=== PATIENT | female | born 1955 | race Caucasian/White ===

== ENCOUNTER 2017-06-12 10:03 | Emergency (ER) | payer OTHER ==
[2017-06-12 10:12] VITALS: BP 142/66
--- NOTE | 2017-06-12 10:47 | RADIOLOGY REPORT (SQ) ---
EXAM DESCRIPTION: FOREARM LEFT COMPLETED DATE/TIME: 06/12/2017 10:32 am REASON FOR STUDY: fall COMPARISON: None. NUMBER OF VIEWS: Two views. TECHNIQUE: Two radiographic images acquired of the left forearm, including elbow and wrist in at [address] one projection. LIMITATIONS: None. FINDINGS: MINERALIZATION: Normal. BONES: There is a comminuted fracture of the distal radius with mild volar angulation. SOFT TISSUES: No obvious swelling or foreign body. OTHER: No other significant finding. IMPRESSION: Distal radial fracture. TECHNICAL DOCUMENTATION: JOB ID: [id number] [employer]- All Rights Reserved
[2017-06-12] MEDS ORDERED: TRAMADOL HCL 50 MG TABLET PO ONE (10:51)
--- NOTE | 2017-06-12 10:59 | ER Document Report ---
HPI - HPI Patient complains to provider of: fall Pain Level: 4 Context: Patient is a 62-year-old female presents emergency department complaining of left wrist pain. Patient states that she fell earlier today because she slipped landing on her left side mainly on her left wrist. She admits to pain just proximal to the base of her thumb. She states it hurts whenever she moves her fingers. Otherwise she states that she has a history of back pain. - CONSTITUTIONAL Constitutional: DENIES: Fever, Chills - EENT EENT: DENIES: Sore Throat, Ear Pain, Eye problems - NEURO Neurology: DENIES: Headache - CARDIOVASCULAR Cardiovascular: DENIES: Chest pain - RESPIRATORY Respiratory: DENIES: Trouble Breathing, Coughing - GASTROINTESTINAL Gastrointestinal: DENIES: Abdominal Pain, Black / Bloody Stools - URINARY Urinary: DENIES: Dysuria, Urgency, Frequency Past Medical History - Social History Smoking Status: Never Smoker Chew tobacco use (# tins/day): No Frequency of alcohol use: Occasional Drug Abuse: None Family History: Reviewed & Not Pertinent Patient has suicidal ideation: No Patient has homicidal ideation: No Renal/ Medical History: Denies: Hx Peritoneal Dialysis Past Surgical History: Reports: Hx Breast Surgery, Hx Kidney (Renal Surgery), Hx Tubal Ligation Vertical Provider Document - CONSTITUTIONAL Agree With Documented VS: Yes Notes: PHYSICAL EXAM GENERAL: Alert, interacts well. HEAD: Normocephalic, atraumatic. EXTREMITIES: Tenderness over the distal radius without evidence of deformity but evidence of swelling no ecchymosis. Patient's elbow nontender and full range of motion fingers nontender and full range of motion no pain with compression of the metacarpals. Patient lvn lpn strength guarded of the left hand. Radial pulse 2 out of 4 bilaterally. Cap refill less than 2 seconds. Sensory intact in all digits of the left hand. NEUROLOGICAL: Alert and oriented x4. Normal speech. PSYCH: Normal affect, normal mood. SKIN: Warm, dry, normal turgor. No rashes or lesions noted. - INFECTION CONTROL TRAVEL OUTSIDE OF THE [place] IN LAST 30 DAYS: No - RESPIRATORY O2 Sat by Pulse Oximetry: 98 Course - Re-evaluation Re-evalutation: 06/12/17 11:00 Patient is a 62-year-old female who presents after a fall. X-ray shows evidence of a distal radius fracture that is minimally displaced. Patient placed in a dorsal volar splint and educated on follow-up with orthopedics. Otherwise extremities neurovascularly intact. Patient given strict return precautions otherwise stable for discharge home. - Vital Signs Vital signs: Temp Pulse Resp BP Pulse Ox 97.9 F 61 18 142/66 H 98 06/12/17 10:10 06/12/17 10:10 06/12/17 10:10 06/12/17 10:10 06/12/17 10:10 - Diagnostic Test Radiology reviewed: Image reviewed, Reports reviewed Procedures - Immobilization Left Wrist Pre-Proc Neuro Vasc Exam: Normal Immobilizer type: Volar splint Performed by: PCT Post-Proc Neuro Vasc Exam: Unchanged from pre-exam Alignment checked and good: Yes Discharge - Discharge Clinical Impression: Distal radius fracture Qualifiers: Encounter type: initial encounter Fracture type: closed Fracture morphology: unspecified fracture morphology Laterality: left Qualified Code(s): S52.502A - Unspecified fracture of the lower end of left radius, initial encounter for closed fracture Condition: Good Disposition: HOME, SELF-CARE Instructions: Fractured Radius ([facility]), Splint Precautions ([facility]) Prescriptions: Oxycodone HCl/Acetaminophen [Percocet 5-325 mg Tablet] 1 - 2 tab PO Q4H PRN #15 tablet PRN Reason: Referrals: JOSUE HILLS DO [Primary Care Provider] - Follow up as needed MARCELA TRACY DO [ACTIVE STAFF] - 06/15/17
== END 2017-06-12 11:02 | disposition home or self-care (01) ==
LOC: ER 10:03
PROC: 2W3DX1Z Immobilization of Left Lower Arm using Splint (ICD-10-PCS; principal; 2017-06-12)
DX: S52.502A Unspecified fracture of the lower end of left radius, initial encounter for closed fracture (principal); M25.532 Pain in left wrist; W19.XXXA Unspecified fall, initial encounter
CPT/HCPCS: 99283

== ENCOUNTER 2017-06-17 15:11 | Emergency (ER) | payer OTHER ==
[2017-06-17] MEDS ORDERED: OXYCODONE-ACETAMINOPHEN 5-325 MG TABLET PO ONE (18:13)
--- NOTE | 2017-06-17 18:19 | ER Document Report ---
HPI - HPI Patient complains to provider of: Left forearm tenderness Onset: Other - 5 days Onset/Duration: Worse Quality of pain: Achy Pain Level: 3 Context: Patient states she had a splint placed after fracturing her wrist 5 days ago. Patient complains of pain with her splint and states that it was too tight. Patient states the triage nurse did loosen the splint in her arm feels better although she still has some discomfort. Associated Symptoms: Other - Left forearm pain Exacerbated by: Movement Relieved by: Denies Similar symptoms previously: No Recently seen / treated by doctor: No - ROS ROS below otherwise negative: Yes Systems Reviewed and Negative: Yes All other systems reviewed and negative - CONSTITUTIONAL Constitutional: DENIES: Fever, Chills - EENT EENT: DENIES: Sore Throat, Ear Pain, Eye problems - CARDIOVASCULAR Cardiovascular: DENIES: Chest pain - RESPIRATORY Respiratory: DENIES: Trouble Breathing, Coughing - GASTROINTESTINAL Gastrointestinal: DENIES: Abdominal Pain, Black / Bloody Stools - MUSCULOSKELETAL Musculoskeletal: REPORTS: Extremity pain - left arm in splint Past Medical History - General Information source: Patient - Social History Smoking Status: Former Smoker Chew tobacco use (# tins/day): No Frequency of alcohol use: None Drug Abuse: None Occupation: None Lives with: Family Family History: Reviewed & Not Pertinent Patient has suicidal ideation: No Patient has homicidal ideation: No Renal/ Medical History: Denies: Hx Peritoneal Dialysis Musculoskeltal Medical History: Reports Other - Chronic back Past Surgical History: Reports: Hx Breast Surgery, Hx Kidney (Renal Surgery), Hx Tubal Ligation Vertical Provider Document - CONSTITUTIONAL Agree With Documented VS: Yes Exam Limitations: No Limitations General Appearance: WD/WN, No Apparent Distress - INFECTION CONTROL TRAVEL OUTSIDE OF THE [place] IN LAST 30 DAYS: No - HEENT HEENT: Atraumatic, Normocephalic - NECK Neck: Normal Inspection - RESPIRATORY Respiratory: No Respiratory Distress O2 Sat by Pulse Oximetry: 98 - CARDIOVASCULAR Pulses: Normal: Radial - MUSCULOSKELETAL/EXTREMETIES Musculoskeletal/Extremeties: MAEW, Tender - Left distal radius tenderness with overlying swelling and ecchymosis, Edema, Eccymosis - NEURO Level of Consciousness: Awake, Alert, Appropriate Motor/Sensory: No Motor Deficit - DERM Integumentary: Warm, Dry Course - Vital Signs Vital signs: Temp Pulse Resp BP Pulse Ox 99.1 F 62 18 137/83 H 98 06/17/17 15:27 06/17/17 15:27 06/17/17 15:27 06/17/17 15:27 06/17/17 15:27 - Diagnostic Test Radiology reviewed: Image reviewed - Reviewed patient's previous x-ray report Procedures - Immobilization Left Wrist Pre-Proc Neuro Vasc Exam: Normal Immobilizer type: Sugar tong, Sling Performed by: PCT Post-Proc Neuro Vasc Exam: Normal Alignment checked and good: Yes Discharge - Discharge Clinical Impression: Aftercare for cast or splint check or change Distal radius fracture Qualifiers: Encounter type: initial encounter Fracture type: closed Fracture morphology: unspecified fracture morphology Laterality: left Qualified Code(s): S52.502A - Unspecified fracture of the lower end of left radius, initial encounter for closed fracture Condition: Stable Disposition: HOME, SELF-CARE Instructions: Fractured Radius ([facility]), Sling to be Used ([facility]), Splint Precautions ([facility]) Additional Instructions: Return immediately for any new or worsening symptoms Followup with your primary care provider, call tomorrow to make a followup appointment Follow-up with orthopedic doctor for further evaluation Wear sling only while awake Referrals: [facility] [Provider Group] - Follow up in 3-5 days
[2017-06-17 19:37] VITALS: BP 141/70
== END 2017-06-17 19:36 | disposition home or self-care (01) ==
LOC: ER 15:11
DX: S62.102D Fracture of unspecified carpal bone, left wrist, subsequent encounter for fracture with routine healing (principal); X58.XXXD Exposure to other specified factors, subsequent encounter; M79.632 Pain in left forearm; Z87.891 Personal history of nicotine dependence
CPT/HCPCS: 99282

== ENCOUNTER 2018-01-19 10:32 | Emergency (ER) | payer OTHER ==
--- NOTE | 2018-01-19 12:25 | RADIOLOGY REPORT (SQ) ---
EXAM DESCRIPTION: WRIST RIGHT 3 VIEWS COMPLETED DATE/TIME: 01/19/2018 11:53 am REASON FOR STUDY: fall pain bruising COMPARISON: None. NUMBER OF VIEWS: Three views. TECHNIQUE: AP, lateral, and oblique radiographic images acquired of the right wrist. LIMITATIONS: None. FINDINGS: MINERALIZATION: Normal. BONES: Buckle fracture distal radius. SOFT TISSUES: No soft tissue swelling. No foreign body. OTHER: No other significant finding. IMPRESSION: Buckle fracture distal radius. Compare severe the option wrist may be a consideration d epending on clinical findings and further confirmation. TECHNICAL DOCUMENTATION: JOB ID: [id number] [employer]- All Rights Reserved Reading location - IP/workstation name: [email or web address]
--- NOTE | 2018-01-19 12:31 | RADIOLOGY REPORT (SQ) ---
EXAM DESCRIPTION: FOREARM RIGHT COMPLETED DATE/TIME: 01/19/2018 11:53 am REASON FOR STUDY: fall pain bruising COMPARISON: None. NUMBER OF VIEWS: Two views. TECHNIQUE: Two radiographic images acquired of the right forearm, including elbow and wrist in at le ast one projection. LIMITATIONS: None. FINDINGS: MINERALIZATION: Normal. BONES: Radial shaft and ulnar are intact except for cortical by along the distal radius that in conju nction wih ulna avulsion fragment may be secondary to fracture -possibly old. Recommend clinical co rrelation. SOFT TISSUES: No obvious swelling or foreign body. OTHER: No other significant finding. IMPRESSION: Radial and ulnar shafts are intact except for cortical bump along the distal radius. Co uld represent old fracture. Recommend clinical correlation since acute buckle fracture cannot be exc luded. TECHNICAL DOCUMENTATION: JOB ID: [id number] [employer]- All Rights Reserved Reading location - IP/workstation name: [email or web address]
--- NOTE | 2018-01-19 12:33 | RADIOLOGY REPORT (SQ) ---
EXAM DESCRIPTION: HAND RIGHT 3 VIEWS COMPLETED DATE/TIME: 01/19/2018 11:53 am REASON FOR STUDY: fall pain bruising COMPARISON: None. EXAM PARAMETERS: NUMBER OF VIEWS: Three views. TECHNIQUE: AP, lateral and oblique radiographic images acquired of the right hand. LIMITATIONS: None. FINDINGS: MINERALIZATION: Normal. BONES: No acute fractures involving hand. Cortical bump along the distal radius may represent buckle fracture or old healed distal radial fracture. JOINTS: No effusions. SOFT TISSUES: No soft tissue swelling. No foreign body. OTHER: No other significant finding. IMPRESSION: No acute posttraumatic changes of the bones of the hand. TECHNICAL DOCUMENTATION: JOB ID: [id number] [employer]- All Rights Reserved Reading location - IP/workstation name: [email or web address]
--- NOTE | 2018-01-19 12:49 | ER Document Report ---
ED Extremity Problem, Upper - General Chief Complaint: Arm Injury Stated Complaint: FALL/ARM INJURY Time Seen by Provider: 01/19/18 10:50 Mode of Arrival: Wheelchair Information source: Patient Notes: 62-year-old female presented ED for pain to the right wrist hand and forearm. She states on Thursday she was walking and caught the corner of the rail and fell injuring her right wrist hand and forearm. There is bruising and swelling to these areas. Patient is alert and oriented respirations regular unlabored speaking in full sentences. States she just came back from the pain management doctor who treated her nerves in some way in her back to feel the pain in her back. States she is not able to walk very good at this moment due to this. TRAVEL OUTSIDE OF THE [place] IN LAST 30 DAYS: No - HPI Patient complains to provider of: Right, Forearm, Hand, Wrist Onset: Other - Thursday today is Thursday Recent injury: Possibly Where: Home, Outdoors Quality of pain: Sharp, Throbbing Severity of pain: Moderate Pain Level: 3 Context: Fall Exacerbated by: Movement, Exertion Relieved by: Nothing Similar symptoms previously: Yes Recently seen / treated by doctor: Yes - Related Data Allergies/Adverse Reactions: Sulfa (Sulfonamide Antibiotics) Allergy (Verified 01/19/18 10:35) Past Medical History - General Information source: Patient - Social History Smoking Status: Former Smoker Chew tobacco use (# tins/day): No Frequency of alcohol use: Occasional Drug Abuse: None Occupation: none Lives with: Family Family History: Reviewed & Not Pertinent Patient has suicidal ideation: No Patient has homicidal ideation: No - Past Medical History Cardiac Medical History: Reports: None Pulmonary Medical History: Reports: None EENT Medical History: Reports: None Neurological Medical History: Reports: None Endocrine Medical History: Reports: None Renal/ Medical History: Reports: Other - Kidney reflux Malignancy Medical History: Reports: None GI Medical History: Reports: None Musculoskeltal Medical History: Reports Hx Arthritis, Reports Hx Musculoskeletal Deformity, Reports Hx Musculoskeletal Trauma Skin Medical History: Reports None Psychiatric Medical History: Reports: Hx Depression - anxiety panic attacks Traumatic Medical History: Reports: Hx Fractures - Left tibial plateau left leg left wrist Infectious Medical History: Reports: None Past Surgical History: Reports: Hx Breast Surgery - left breast biopsy, Hx Kidney (Renal Surgery) - 3 treat reflux, Hx Orthopedic Surgery - tibial plateau fx , left wrist fx, Hx Tubal Ligation Review of Systems - Review of Systems Constitutional: No symptoms reported EENT: No symptoms reported Cardiovascular: No symptoms reported Respiratory: No symptoms reported Gastrointestinal: No symptoms reported Genitourinary: No symptoms reported Female Genitourinary: No symptoms reported Musculoskeletal: Other - Right wrist hand and forearm pain bruising swelling Skin: Change in color - Right wrist hand and forearm Hematologic/Lymphatic: No symptoms reported Neurological/Psychological: No symptoms reported -: Yes All other systems reviewed and negative Physical Exam - Vital signs Vitals: Temp Pulse Resp BP Pulse Ox 98.0 F 64 16 126/66 H 99 01/19/18 10:39 01/19/18 10:39 01/19/18 10:39 01/19/18 10:39 01/19/18 10:39 Interpretation: Normal - General General appearance: Appears well, Alert - HEENT Head: Normocephalic, Atraumatic Eyes: Normal Pupils: PERRL - Respiratory Respiratory status: No respiratory distress Chest status: Nontender Breath sounds: Normal Chest palpation: Normal - Cardiovascular Rhythm: Regular Heart sounds: Normal auscultation Murmur: No - Abdominal Inspection: Normal Distension: No distension Bowel sounds: Normal Tenderness: Nontender Organomegaly: No organomegaly - Back Back: Normal, Nontender - Extremities General upper extremity: Normal temperature General lower extremity: Normal inspection, Nontender, Normal color, Normal ROM , Normal temperature, Normal weight bearing. No: Vanita's sign Forearm: Tender, Ecchymosis - Right right Wrist: Tender - Right, Ecchymosis, Limited ROM - Right Hand: Tender - Right, Ecchymosis - right, No evidence of human bite, No evidence of FB, Swelling - Right - Neurological Neuro grossly intact: Yes Cognition: Normal Orientation: AAOx4 [place] Coma Scale Eye Opening: Spontaneous [place] Coma Scale Verbal: Oriented [place] Coma Scale Motor: Obeys Commands [place] Coma Scale Total: 15 Speech: Normal Motor strength normal: LUE, RUE, LLE, RLE Sensory: Normal - Psychological Associated symptoms: Normal affect, Normal mood - Skin Skin Temperature: Warm Skin Moisture: Dry Skin Color: Normal Course - Re-evaluation Re-evalutation: 01/19/18 13:35 Right distal radial buckle fracture. Otherwise x-rays are negative. Patient was discharged home with a copy of her x-ray reports after they were discussed with her. Patient was treated with a thumb spica splint and a sling. Patient was instructed to follow-up with orthopedics for this fracture. Patient is instructed to elevate and ice the wrist. Patient able to verbalize understanding of instructions and discharge plan. - Vital Signs Vital signs: Temp Pulse Resp BP Pulse Ox 98.3 F 73 16 133/69 H 97 01/19/18 12:58 01/19/18 12:58 01/19/18 12:58 01/19/18 12:58 01/19/18 12:58 - Diagnostic Test Radiology reviewed: Image reviewed, Reports reviewed Discharge - Discharge Clinical Impression: Right radial buckle fracture Condition: Stable Disposition: HOME, SELF-CARE Additional Instructions: You were seen today for injury to your right forearm wrist and hand. You have a right buckle fracture to the distal radius. Splint Pending Casting Your injury can't be casted until the swelling has subsided. Therefore, a temporary splint has been placed to protect the injury. Full use of an injured area is not possible in a splint. You should follow the doctor's instructions concerning rest, ice, and elevation of the injury. Never do anything which causes pain under the splint. Keep the splint on ALL THE TIME until you return for casting. If there is unexpected severe pain, or numbness, discoloration, or swelling beyond the splint, you should return at once. ICE & ELEVATION: Apply ice packs frequently against the painful area. Many different schedules are recommended, such as "20 minutes on, 20 minutes off" or "one hour ice, two hours rest." If you need to work, you may need to go longer between ice treatments. You should plan to have the area ice packed AT LEAST one- fourth of the time. The ice should be applied over the wrap, tape, or splint, or over a layer of cloth -- not directly against the skin. Some ice bags have a built-in cloth and can be put directly on the skin. Your injured part should be elevated as much as possible over the next 48 hours. Try to keep the injury above the level of the heart. Avoid use of the injured area. Elevation and rest will decrease the swelling. USE OF [id number] IBUPROFEN: Ibuprofen (Advil, Nuprin, Medipren, Motrin IB) is a medication for fever and pain control. In addition, it has anti- inflammatory effects which may be beneficial, especially in the treatment of injuries. It's best to take ibuprofen with food. Persons with ulcer disease or allergy to aspirin should notify their physician of this before taking ibuprofen. Ibuprofen can be given every four to six hours, for a total of four doses daily. Age Pain or fever dose Antiinflammatory dose 6-8 yr 200 mg (1 tab) 200 mg (1 tab) 9-11 yr 200 mg (1 tab) 200-400 mg (1-2 tab) 11-14 yr 200-400 mg (1-2 tab) 400 mg (2 tab) 15-adult 400 mg (2 tab) 600 mg (3 tab) FOLLOW-UP CARE: If you have been referred to a physician for follow-up care, call the physician s office for an appointment as you were instructed or within the next two days. If you experience worsening or a significant change in your symptoms, notify the physician immediately or return to the Emergency Department at any time for re-evaluation. Referrals: JOSUE HILLS DO [Primary Care Provider] - Follow up as needed DUNIA BENITEZ MD [ACTIVE STAFF] - Follow up as needed
[2018-01-19 13:01] VITALS: BP 133/69
== END 2018-01-19 13:03 | disposition home or self-care (01) ==
LOC: ER 10:32
PROC: 2W3DX1Z Immobilization of Left Lower Arm using Splint (ICD-10-PCS; principal; 2018-01-19)
DX: S52.91XA Unspecified fracture of right forearm, initial encounter for closed fracture (principal); W22.8XXA Striking against or struck by other objects, initial encounter; Z98.51 Tubal ligation status; Z87.891 Personal history of nicotine dependence
CPT/HCPCS: 99283

== ENCOUNTER → 2019-03-14 | Outpatient (CLI) | payer MEDICARE, OTHER ==
--- NOTE | 2019-03-14 12:45 | RADIOLOGY REPORT (SQ) ---
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 NUMBER OF VIEWS: Three views. TECHNIQUE: AP, lateral and sacral radiographic images acquired of the lumbar spine. LIMITATIONS: None. FINDINGS: MINERALIZATION: Normal. SEGMENTATION: Normal. No transitional anatomy. ALIGNMENT: Normal. VERTEBRAE: Maintained height. No fracture or worrisome bone lesion. DISCS: Preserved height. No significant osteophytes or end plate irregularity. POSTERIOR ELEMENTS: Pedicles and facets are intact. No pars defect or posterior arch defects. HARDWARE: Postsurgical changes at L4-L5. PARASPINAL SOFT TISSUES: Normal. PELVIS: Intact as visualized. No fractures or worrisome bone lesions. SI joints intact. OTHER: No other significant finding. IMPRESSION: Postsurgical changes at L4-L5. No other significant findings. TECHNICAL DOCUMENTATION: JOB ID: [id number] [employer]- All Rights Reserved Reading location - IP/workstation name: [email or web address]
== END ==
LOC: RAD 11:21
PROVIDERS: ATTEND Neurological Surgery
DX: M43.16 Spondylolisthesis, lumbar region (principal)
CPT/HCPCS: 72100

== ENCOUNTER 2019-06-16 10:52 | Emergency (ER) | payer OTHER, MEDICARE ==
[2019-06-16 10:56] VITALS: BP 136/79
[2019-06-16] MEDS ORDERED: DIPH/PERTUSS(ACELL)/TETANUS VAC/PF 0.5 ML SYR (>=10YO) IM ONE (11:02)
--- NOTE | 2019-06-16 11:04 | ER Document Report ---
ED Medical Screen (RME) - General Chief Complaint: Laceration Stated Complaint: LACERATION/LEFT INDEX FINGER Time Seen by Provider: 06/16/19 11:01 Primary Care Provider: JOSUE HILLS DO [Primary Care Provider] - Follow up as needed Mode of Arrival: Ambulatory Information source: Patient Notes: 64-year-old female presents to ED for laceration to the end of the left index finger. She states her tetanus is not up-to-date she is not sure of the date. A former smoker drinks weekly and no illicit drugs. She is allergic to sulfa. There is some pressure to the area her pain is a level 0 at this time. She is on gabapentin and naproxen back surgery in January. Patient is alert oriented respirations regular and unlabored speaking in full sentences. TRAVEL OUTSIDE OF THE [place] IN LAST 30 DAYS: No - Related Data Allergies/Adverse Reactions: Sulfa (Sulfonamide Antibiotics) Allergy (Verified 06/16/19 10:58) Home Medications: gabapentin, naproxen Past Medical History - Social History Chew tobacco use (# tins/day): No Frequency of alcohol use: Social Drug Abuse: None Renal/ Medical History: Denies: Hx Peritoneal Dialysis Musculoskeltal Medical History: Reports Hx Arthritis, Reports Hx Musculoskeletal Deformity, Reports Hx Musculoskeletal Trauma Psychiatric Medical History: Reports: Hx Depression - anxiety panic attacks Traumatic Medical History: Reports: Hx Fractures - Left tibial plateau left leg left wrist Past Surgical History: Reports: Hx Breast Surgery - left breast biopsy, Hx Kidney (Renal Surgery) - 3 treat reflux, Hx Orthopedic Surgery - tibial plateau fx , left wrist fx, Hx Tubal Ligation Physical Exam - Vital signs Vitals: Temp Pulse Resp BP Pulse Ox 97.7 F 77 16 136/79 H 96 06/16/19 10:55 06/16/19 10:55 06/16/19 10:55 06/16/19 10:55 06/16/19 10:55 Course - Vital Signs Vital signs: Temp Pulse Resp BP Pulse Ox 97.7 F 77 16 136/79 H 96 06/16/19 10:55 06/16/19 10:55 06/16/19 10:55 06/16/19 10:55 06/16/19 10:55 Doctor's Discharge - Discharge Referrals: JOSUE HILLS DO [Primary Care Provider] - Follow up as needed
--- NOTE | 2019-06-16 13:58 | ER Document Report ---
ED General - General Chief Complaint: Laceration Stated Complaint: LACERATION/LEFT INDEX FINGER Time Seen by Provider: 06/16/19 11:01 Primary Care Provider: JOSUE HILLS DO [NO LOCAL MD] - Follow up as needed Mode of Arrival: Ambulatory TRAVEL OUTSIDE OF THE [place] IN LAST 30 DAYS: No - HPI Notes: Mrs. Romero is a 64-year-old female with a chief complaint of finger laceration. Patient was at home preparing dinner about 2 hours ago when she accidentally lacerated the tip of the index finger of the dominant right hand with a paring knife. Last tetanus booster greater than 5 years ago when she was given a tetanus booster at triage before being seen by me today. No other complaints at this time. Patient has a history of chronic back pain she is on naproxen and gabapentin. Allergic to sulfa. - Related Data Allergies/Adverse Reactions: Sulfa (Sulfonamide Antibiotics) Allergy (Verified 06/16/19 10:58) Home Medications: gabapentin, naproxen Past Medical History - General Information source: Patient - Social History Smoking Status: Former Smoker Chew tobacco use (# tins/day): No Frequency of alcohol use: Social Drug Abuse: None Family History: Reviewed & Not Pertinent Patient has suicidal ideation: No Patient has homicidal ideation: No Renal/ Medical History: Denies: Hx Peritoneal Dialysis Musculoskeletal Medical History: Reports Hx Arthritis, Reports Hx M usculoskeletal Deformity, Reports Hx Musculoskeletal Trauma Psychiatric Medical History: Reports: Hx Depression - anxiety panic attacks Traumatic Medical History: Reports: Hx Fractures - Left tibial plateau left leg left wrist Past Surgical History: Reports: Hx Breast Surgery - left breast biopsy, Hx Kidney (Renal Surgery) - 3 treat reflux, Hx Orthopedic Surgery - tibial plateau fx , left wrist fx, Hx Tubal Ligation Review of Systems - Review of Systems Notes: Constitutional: Negative for fever. HENT: Negative for sore throat. Eyes: Negative for visual changes. Cardiovascular: Negative for chest pain. Respiratory: Negative for shortness of breath. Gastrointestinal: Negative for abdominal pain, vomiting or diarrhea. Genitourinary: Negative for dysuria. Musculoskeletal: Chronic back pain. Skin: Laceration as noted in HPI. Neurological: Negative for headaches, weakness or numbness. 10 point ROS negative except as marked above and in HPI. Physical Exam - Vital signs Vitals: Temp Pulse Resp BP Pulse Ox 97.7 F 77 16 136/79 H 96 06/16/19 10:55 06/16/19 10:55 06/16/19 10:55 06/16/19 10:55 06/16/19 10:55 - Notes Notes: Patient has a 1.5 cm oblique superficial laceration of the radial aspect of the distal phalanx right index finger. No active bleeding. Patient is alert and awake and appears in mild pain. Chest clear to A&P. Heart: Regular rhythm no murmur gallop or rub. Course - Re-evaluation Re-evalutation: 06/16/19 14:00 Uncomplicated superficial laceration of the distal phalanx right index finger. Options were discussed with patient. It was agreed that we would irrigate this copiously and applied Dermabond which we did. Patient will take Tylenol PRN for pain at home. She is received a tetanus booster here today. I will place her on Keflex and have her follow-up with her primary care physician. - Vital Signs Vital signs: Temp Pulse Resp BP Pulse Ox 97.7 F 77 16 136/79 H 96 06/16/19 10:55 06/16/19 10:55 06/16/19 10:55 06/16/19 10:55 06/16/19 10:55 Discharge - Discharge Clinical Impression: Laceration of finger Qualifiers: Encounter type: initial encounter Finger: index finger Damage to nail status: without damage Foreign body presence: without foreign body Laterality: right Qualified Code(s): S61.210A - Laceration without foreign body of right index finger without damage to nail, initial encounter Condition: Stable Disposition: HOME, SELF-CARE Instructions: Antibiotic Ointment Protection ([facility]) Additional Instructions: Dermabond (Skin Adhesive Closure) Skin adhesive (such as Dermabond) is a quick-drying glue that remains slightly flexible while it holds wound edges together. It can substitute for stitches on some cuts. The film will usually fall off the skin after 5 to 10 days. Keep the wound area clean and dry. Do not soak or scrub the wound. Don't swim. You can shower briefly after 24 hours. Gently blot the area dry with a soft towel. Don't apply ointments. If there is a dressing, change it immediately if it gets wet. Do not place tape directly over the adhesive film, because the tape may pull the film off your skin as you remove it. Don't bump the wound area. If there's risk of injury, keep the area well- padded. Avoid stretching of the skin. Do not scratch or pick at the adhesive film. Avoid prolonged exposure to sunlight or tanning lamps. Return if there is increasing pain, swelling, redness, or drainage, or if the wound edges seem to open or separate. Tylenol as needed. Return here for any signs of infection. Follow-up with your doctor. Prescriptions: Cephalexin Monohydrate [Keflex 500 mg Capsule] 500 mg PO Q6H 5 Days #20 capsule Referrals: JOSUE HILLS DO [NO LOCAL MD] - Follow up as needed
== END 2019-06-16 14:34 | disposition home or self-care (01) ==
LOC: ER 10:52
PROC: 0HQFXZZ Repair Right Hand Skin, External Approach (ICD-10-PCS; principal; 2019-06-16)
DX: S61.210A Laceration without foreign body of right index finger without damage to nail, initial encounter (principal); M54.9 Dorsalgia, unspecified; G89.29 Other chronic pain; W26.0XXA Contact with knife, initial encounter; Z79.899 Other long term (current) drug therapy; Z87.891 Personal history of nicotine dependence
CPT/HCPCS: 12001; G0168; 90471; 90715; 99282

== ENCOUNTER → 2019-07-01 | Outpatient (CLI) | payer OTHER, MEDICARE ==
--- NOTE | 2019-07-01 10:18 | RADIOLOGY REPORT (SQ) ---
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 NUMBER OF VIEWS: Two views. LIMITATIONS: None. FINDINGS: Normal alignment, maintained throughout flexion and extension. No abnormal motion. OTHER: There are postsurgical changes at L4-L5. IMPRESSION: NO RADIOGRAPHIC EVIDENCE OF ABNORMAL MOTION. TECHNICAL DOCUMENTATION: JOB ID: [id number] [employer]- All Rights Reserved Reading location - IP/workstation name: [email or web address]
== END ==
LOC: RAD 09:36
PROVIDERS: ATTEND Neurological Surgery
DX: M43.16 Spondylolisthesis, lumbar region (principal)
CPT/HCPCS: 72120